=== PATIENT | male | born 1990 | race Caucasian/White ===

== ENCOUNTER 2019-09-09 15:46 | Emergency (ER) | payer OTHER ==
[2019-09-09 16:02] VITALS: BP 138/85
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
[2019-09-09] MEDS ORDERED: DOXYCYCLINE 100 MG TABLET PO STA (16:25)
[2019-09-09] MEDS ORDERED: KETOROLAC 60 MG/2 ML VIAL IM STA (16:25)
== END 2019-09-09 16:44 | disposition home or self-care (01) ==
LOC: ED 15:46
DX: S61.251A Open bite of left index finger without damage to nail, initial encounter (principal); S61.255A Open bite of left ring finger without damage to nail, initial encounter; Y04.1XXA Assault by human bite, initial encounter; Y93.89 Activity, other specified; E11.9 Type 2 diabetes mellitus without complications
CPT/HCPCS: 99283; A9270